=== PATIENT | female | born 1990 | race Caucasian/White ===

== ENCOUNTER 2020-12-23 14:25 | Outpatient (CLI) | payer OTHER ==
[~2020-12-23 14:25] MED LIST: Magnevist 469MG/ML 20 ML VIAL ONE
== END 2020-12-23 14:26 | disposition home or self-care (01) ==
LOC: BICMRI 14:25
PROVIDERS: ATTEND Psychiatry & Neurology Neurology
DX: G43.009 Migraine without aura, not intractable, without status migrainosus (principal)
CPT/HCPCS: 70553; A9579

== ENCOUNTER 2021-09-08 13:49 | Outpatient (CLI) | payer OTHER | END 2021-09-08 13:50 | disposition home or self-care (01) | LOC: BICCT 13:49 | PROVIDERS: ATTEND Psychiatry & Neurology Neurology | DX: R51.9 Headache, unspecified (principal) | CPT/HCPCS: 70450 ==